=== PATIENT | female | born 1955 | race Caucasian/White ===

== ENCOUNTER → 2016-12-29 | Outpatient (CLI) | payer OTHER | END | disposition home or self-care (01) | LOC: CFH 16:08 | PROVIDERS: ATTEND Orthopaedic Surgery | DX: M43.12 Spondylolisthesis, cervical region (principal); Z98.890 Other specified postprocedural states; Z98.1 Arthrodesis status | CPT/HCPCS: 72050 ==

== ENCOUNTER → 2017-02-14 | Outpatient (CLI) | payer OTHER | END | disposition home or self-care (01) | LOC: CFH 14:24 | PROVIDERS: ATTEND Physician Assistant Surgical | DX: M43.23 Fusion of spine, cervicothoracic region (principal); M48.02 Spinal stenosis, cervical region | CPT/HCPCS: 72050 ==

== ENCOUNTER → 2017-10-02 | Outpatient (CLI) | payer OTHER | LOC: CFH 14:31 | PROVIDERS: ATTEND Physician Assistant Surgical | DX: M43.23 Fusion of spine, cervicothoracic region (principal); M48.02 Spinal stenosis, cervical region; G89.29 Other chronic pain | CPT/HCPCS: 72050; 72141 ==

== ENCOUNTER 2019-04-17 18:07 | Outpatient (CLI) | payer OTHER | END 2019-04-17 23:59 | disposition home or self-care (01) | LOC: RAD 18:07 | PROVIDERS: ATTEND Physician Assistant Medical | DX: N28.1 Cyst of kidney, acquired (principal); M54.9 Dorsalgia, unspecified; Z90.49 Acquired absence of other specified parts of digestive tract | CPT/HCPCS: 74176 ==